=== PATIENT | female | born 1960 | race Caucasian/White ===

== ENCOUNTER 2022-10-05 08:41 | Outpatient (CLI) | payer OTHER, SELFPAY ==
--- NOTE | 2022-10-05 11:00 | NEURO_ITS ---
Impression: # Complains of numbness and shooting pain in lower extremities # Normal nerve conduction study. # Normal F-waves. # Normal needle/EMG exam. # Clinical correlation recommended. Motor Nerve Conduction Lower Extremities Peroneal Nerve Conduction Velocity (m/sec) Terminal Latency (msec) Response Voltage(mV) Popliteal space-Ankle Ankle Extensor Dig Brevis Popliteal space Ankle Right 52 4.6 3 4 Left 49 4.3 3 5 Tibial Nerve Conduction Velocity (m/sec) Terminal Latency (msec) Response Voltage(mV) Popliteal space-Ankle Ankle-Extensor Dig Brevis Popliteal space Ankle Right 48 4.7 4 6 Left 45 4.5 3 5 F-waves Peroneal Nerve (ms) Tibial Nerve (ms) Right 49.8 51.2 Left 50.5 51.4 Sensory Nerve Conduction Lower Extremities Sural Nerve Stimulation Terminal Latency (msec) Ankle Response Voltage (uV) Ankle Response Velocity (m/sec) Right 3.3 3 48 Left 3.2 7 50 Superficial Peroneal Nerve Stimulation Terminal Latency (msec) Ankle Response Voltage (uV) Ankle Response Velocity (m/sec) Right 3.1 19 52 Left 3.2 4 50 RIGHT LATERAL PLANTER=4.1ms LEFT LATERAL PLANTER=4.3 ms Left Right Muscles Examined Fibrillation Fasciculation Scarcity Voltage Duration Left Right Left Right Left Right Left Right Left Right X X Ant Tibialis X X Gastroc X X Fibularis Long X X Flex Dig Long X X Ext Dig Brev Abd Hallucis Quadriceps Paraspinals MTDD
== END 2022-10-05 08:42 | disposition home or self-care (01) ==
PROVIDERS: PCP Internal Medicine; Visit Provider Internal Medicine
DX: G62.89 Other specified polyneuropathies (principal)
CPT/HCPCS: 95886; 95911

== ENCOUNTER 2022-11-02 10:50 | Outpatient (CLI) | payer OTHER, SELFPAY ==
--- NOTE | ~2022-11-02 | CT_ITS ---
Non-contrast CT scan of the Abdomen and Pelvis Clinical indication: Abdominal pain Technique: 5 mm axial scans were obtained through the abdomen and pelvis without intravenous or oral contrast. Dose reduction technique was used on this scan by utilizing automated exposure control and iterative reconstruction technique. The dose-length product (DLP) was 1023.53 mGy-cm. Findings: Images through the lung bases reveal no abnormalities. There is no evidence of renal or ureteral calculi. The kidneys and the ureters are nondilated. The liver, spleen, pancreas, gallbladder, and adrenals appear normal. There is no aortic aneurysm. There is no evidence of bowel obstruction. There is sigmoid diverticulosis. Suggestion of prior herni orrhaphy. Images through the pelvis were performed. There is no evidence of ascites or lymphadenopathy. Urinary bladder unremarkable. Patient is post hysterectomy. No pelvic mass. Impression: No acute abnormality seen. Postoperative changes, as above. Reviewed, dictated and finalized at [facility]. ITAL PLAN ADMINISTRATOR Impression: No acute abnormality seen. Postoperative changes, as above.
[2022-11-02 11:09] LABS: Basophils Absolute Auto 0.03 K/mm3 (0.00-0.10); Basophils Percent Auto 0.5 % (0.0-1.0); Eosinophils Absolute Auto 0.07 K/mm3 (0.02-0.50); Eosinophils Percent Auto 1.1 % (1.0-6.0); Hematocrit 44.9 % (35.0-49.0); Hemoglobin 14.5 g/dL (12.0-15.0); Immature Granulocyte Absolute 0.02 K/mm3 (0.00-0.00); Immature Granulocyte Percent A 0.3 % (0.0-0.0); Lymphocytes Absolute Auto 1.47 K/mm3 (1.10-4.50); Lymphocytes Percent Auto 23.3 % (18.0-42.0); Mean Corpuscular HGB Conc 32.3 g/dL (32.0-36.0); Mean Corpuscular Hemoglobin 28.5 pg (27.0-31.0); Mean Corpuscular Volume 88.2 fL (78.0-102.0); Monocytes Absolute Auto 0.41 K/mm3 (0.10-0.90); Monocytes Percent Auto 6.5 % (2.0-11.0); Neutrophils Absolute Auto 4.3 K/mm3 (1.7-7.2); Neutrophils Percent Auto 68.3 % (50.0-70.0); Platelet Count Result 226 K/mm3 (150-420); Red Blood Count 5.09 M/mm3 (4.20-5.40); Red Cell Distribution Width 13.1 % (11.6-14.4); White Blood Count 6.3 K/mm3 (4.8-10.8)
[2022-11-02 11:21] LABS: Add Urine Microscopic? YES; Appearance Urine Clear (Clear); Bilirubin Urine Negative (Negative); Blood Urine Trace-Intact (Negative); Color Urine Yellow (Yellow); Glucose Urine UA Negative (Negative); Ketones Urine Negative (Negative); Leukocyte Esterase Ur Trace (Negative); Nitrate Urine Negative (Negative); Protein Urine 2+ (Negative); Specific Grav Ur >= 1.030 (1.010-1.020); Urobilinogen Urine 0.2 mg/dL (0.2-1.0)
[2022-11-02 11:48] LABS: Bacteria Urine Trace /hpf; RBC Urine None seen /hpf (0-2); Squamous Epithelial Cell Urine Moderate /hpf (Few); WBC Urine 0-3 /hpf (0-3)
[2022-11-02 11:50] LABS: Alanine Aminotransferase 21 U/L (14-59); Albumin Level 4.1 g/dL (3.4-5.0); Alkaline Phosphatase 96 U/L (46-116); Amylase 55 U/L (25-115); Anion Gap 6 mmol/L (8-16); Aspartate Amino Transferase 12 U/L (15-37); Bilirubin,Total 0.5 mg/dL (0.00-1.00); Blood Urea Nitrogen 13 mg/dL (7-18); Calcium 9.3 mg/dL (8.5-10.1); Carbon Dioxide 30 mmol/L (21-32); Chloride 103 mmol/L (98-108); Estimated Glomerular Filt Rate > 60; Glucose 139 mg/dL (70-99); Lipase 22 U/L (16-77); Osmolality Calculated 290 mOsm/kg (285-295); Potassium 4.1 mmol/L (3.5-5.1); Sodium 139 mmol/L (136-145); Total Protein 8.1 g/dL (6.4-8.2)
[2022-11-02 11:57] LABS: Lactic Acid 1.2 mmol/L (0.4-2.0)
== END 2022-11-02 10:51 | disposition home or self-care (01) ==
PROVIDERS: PCP Internal Medicine; Visit Provider Internal Medicine
DX: R10.9 Unspecified abdominal pain (principal); Z98.890 Other specified postprocedural states
CPT/HCPCS: 36415; 74176; 80053; 81001; 82150; 83605; 83690; 85025; 87086; 87088

== ENCOUNTER 2022-11-13 07:43 | Outpatient (CLI) | payer OTHER, SELFPAY ==
--- NOTE | ~2022-11-13 | NM_ITS ---
EXAMINATION: NM hepatobiliary w pharm DATE: 11/13/2022 14:21 INDICATION: Right upper quadrant abdominal pain. COMPARISON: CT abdomen and pelvis 11/02/2022 TECHNIQUE: 6.28 mCi Tc-99m mebrofenin (Choletec) was administered intravenously. Scintigraphic image s of the abdomen were obtained for one hour. Then, 1.8 mcg sincalide (Kinevac) IV was administered, a nd imaging was continued for 30 minutes. FINDINGS: There is normal clearance of radiotracer from the blood pool. There is homogeneous tracer u ptake by the liver. Activity progresses to the bowel and gallbladder. Gallbladder ejection fraction (GBEF) was 8%. Note that most patients with gallbladder dysfunction have GBEF < 35%, which overlaps w ith the broad normal range of 10-90%. IMPRESSION: 1. Low gallbladder ejection fraction, consistent with gallbladder dysfunction and/or chronic cholecy stitis. Reviewed, dictated and finalized at location A. FEEDER IMPRESSION: 1. Low gallbladder ejection fraction, consistent with gallbladder dysfunction and/or chronic cholecystitis.
== END 2022-11-13 07:44 | disposition home or self-care (01) ==
PROVIDERS: PCP Internal Medicine; Visit Provider Internal Medicine
DX: R10.11 Right upper quadrant pain (principal)
CPT/HCPCS: 78227; A9537; J2805

== ENCOUNTER 2022-12-07 09:37 | Outpatient (CLI) | payer OTHER, SELFPAY ==
--- NOTE | 2022-12-07 09:50 | ECG_ITS ---
Measurements Intervals [place] Rate: 75 P: -7 VA: 128 QRS: 16 QRSD: 89 T: 30 QT: 365 QTc: 408 Interpretive Statements SINUS RHYTHM WITH SINUS ARRHYTHMIA NONSPECIFIC T-WAVE ABNORMALITY ABNORMAL ECG NO PREVIOUS ECG AVAILABLE FOR COMPARISON Electronically Signed On 12-07-2022 10:12:09 VALVE SETTER by César Thornton M.D.
== END 2022-12-07 09:38 | disposition home or self-care (01) ==
PROVIDERS: PCP Internal Medicine; Visit Provider Surgery
DX: Z01.818 Encounter for other preprocedural examination (principal); I10 Essential (primary) hypertension; K82.8 Other specified diseases of gallbladder; R94.31 Abnormal electrocardiogram [ECG] [EKG]; I49.8 Other specified cardiac arrhythmias
CPT/HCPCS: 36415; 86850; 86900; 86901; 93005

== ENCOUNTER 2022-12-13 00:19 | Day surgery (SDC) | payer OTHER, SELFPAY ==
--- NOTE | 2022-12-01 14:52 | PC.NURSE ---
Report to the Outpatient Waiting Room, entrance under the green pavilion located off [facility], at time __1130 on date __12/13/22 . Planned Procedure Time: _1330 . Time changes happen often and if your time is changed the preop area will call you the afternoon before. - You and your visitor will be asked to self-screen and do not enter if you have any COVID symptoms. - Only one visitor is requested with a max of two and NO children visitors are allowed at this time. - The patient visitor may be requested to leave or wait in car when not with patient due to distancing restrictions. - A mask is optional within the hospital at this time. Patients may have clear liquids (water, carbonated beverages, clear teas, apple juice) until 3 hours prior to surgery with a maximum of 20 ounces. - No food from midnight until time of surgery - Infants may have breast milk until 4 hours before surgery, formula 6 hours prior to surgery. - Children will be allowed to drink immediately following surgery. If applicable, please bring a bottle or sippy cup to assist with drinking. Juice, water, soda, and popsicles are readily available. For infants on formula, please bring formula the day of surgery. Pacifiers are allowed. Take the following medications with a SIP of water the morning of surgery: ____NONE DO NOT STOP ANY OF YOUR OTHER PRESCRIPTION MEDICATIONS PRIOR TO SURGERY ?EXCEPT THE FOLLOWING Medications to discontinue per physician NONE Date to take last dose HIBICLENS SHOWER THE MORNING OF SURGERY Please no make-up, nail georgian, hairspray, perfume, deodorant, or body powder the day of surgery. No jewelry (including any body piercings) or valuables the day of surgery, leave them at home. Please take a shower or bath the night before, or the morning of, surgery with an antibacterial soap. Wear comfortable, loose fitting clothing. Children are encouraged to wear pajamas. - Jewelry must be removed prior to entering the operating room. Rings and piercings that are not removed may be cut off. - The hospital will not accept responsibility for valuables. - Please leave all valuables, including medications, at home the day of surgery. If you are going home after surgery, a licensed coach driver must drive you home. - NO public transportation without another adult if you receive anesthesia. - We recommend that an adult stay with you for 24 hours following discharge. - We also recommend that you do not drive, make important decision, drink alcoholic beverages, or take any drugs that were not prescribed by your health care provider for at least 24 hours after your discharge time. For Pediatric surgeries, we recommend two adults accompany the child home. Follow any additional instructions given to you from your surgeon. If you or anyone in your household have experienced Covid symptoms in the past week, please notify your surgeon or the nurse liaison at the phone number below for possible testing. Telephone instructions given to ___PATIENT and asked if any additional questions and then verbalized understanding. Patient advised to call surgeon office or pre surgery nurse liaison [phone] if any additional questions.
[2022-12-01 15:01] VITALS: BMI 33.6
[2022-12-13] VITALS (14 sets, daily range): BP systolic 95–137; BP diastolic 53–81; PULSE 53–85; RESP 12–22; TEMP 36.6; O2SAT 93–100
[2022-12-13] MEDS: ACETAMINOPHEN 500 MG TABLET 1000 MG PO (08:00)
[2022-12-13] MEDS: LACTATED RINGERS 1,000 ML 30 ML IV CONT ×3 (08:20→14:27)
[2022-12-13 08:33] LABS: Glucose Point of Care 130 mg/dl (65-105)
--- NOTE | 2022-12-13 09:02 | WPDANESEPPF ---
Anes - Initial Pre Proc Eval Procedure: Operation Date: 12/13/22 09:30 Proposed Procedures p Robotic Assisted Laparoscopic Cholecystectomy Possible Open - Huy Winters DO Date/Time: 12/13/22 09:02 Surgeon: Huy Winters DO Pre Op Diagnosis: biliary dyskinesia, Epigastric pain Patient Data Age: 62 Gender: F Height: 1.63 m Weight: 89.3 kg Last Vital Signs Temp 36.6 C 12/13/22 08:39 Pulse 79 12/13/22 08:39 Resp 16 12/13/22 08:39 BP 137/81 12/13/22 08:39 Pulse Ox 100 12/13/22 08:39 O2 Del Method Room Air 12/13/22 08:39 Allergies Allergy/AdvReac Type Severity Reaction Status Date / Time iodine Allergy Severe Anaphylactic Verified 12/13/22 07:43 Shock codeine Allergy Unknown Hallucinati Verified 12/13/22 07:43 ng erythromycin base Allergy Unknown Hives Verified 12/13/22 07:43 Shrimp Allergy Severe Anaphylactic Uncoded 12/13/22 07:43 Shock MYRIAM AdvReac Mild REDDNESS Uncoded 12/13/22 07:43 AND SWELLING Home Medications Medication Instructions Recorded Confirmed Type epinephrine 0.3 mg/0.3 mL 0.3 mg IM Q4H PRN Allergic Reaction 11/23/22 12/13/22 History injection, auto-injector (EpiPen) glipizide 2.5 mg tablet, extended 2.5 mg PO DAILY 11/23/22 12/13/22 History release 24 hr hydroxyzine HCl 25 mg tablet 25 mg PO BID PRN Itching 11/23/22 12/13/22 History losartan 25 mg tablet 25 mg PO BID 11/23/22 12/13/22 History lovastatin 20 mg tablet 20 mg PO DAILY 11/23/22 12/13/22 History omeprazole 40 mg capsule,delayed 40 mg PO DAILY 11/23/22 12/13/22 History release Laboratory Tests 12/13/22 08:30 POC Capillary Glucose 130 mg/dl H mg/dl (65-105) Patient hx anesthesia problems: post op nausea/vomiting Family hx anesthesia problems: none Results Review: All pre-operative results and documents have been reviewed as part of the pre-operative evaluation. [facility] Past Medical History Medical History Diverticulosis GERD (gastroesophageal reflux disease) High cholesterol Hypertension Type 2 diabetes mellitus Surgical History Surgical History H/O: hysterectomy 2004 History of bilateral carpal tunnel release History of incisional hernia repair Family History Family History Mother Diabetes mellitus Hypertension Family history of arthritis Other Leukemia Social History Social History Smoking status: Never smoker Alcohol intake: current Living arrangements: with family Spiritual care concerns: No Anes - Eval Final PreProcedure Day of Procedure 12/13/22 09:02 Patient weight: obese Heart: regular rate and rhythm Lungs: clear to auscultation Airway: Mallampati scale class II Neurological: alert and oriented Last oral intake: >/= 8 hours ASA classification: III Emergent: no Anesthetic plan: proceed Anesthesia type and monitoring: general ETT and standard monitoring Results Review: All pre-operative results and documents have been reviewed as part of the pre-operative evaluation. Informed Consent: The patient's anesthetic plan and its attendant risks and benefits were discussed with the patient/family/POA. Questions were solicited and answers provided to the satisfaction of the patient/family/POA.
[2022-12-13] MEDS: KETOROLAC 15 MG/ML VIAL (*BKC) IV PUSH (09:28)
[2022-12-13] MEDS: SCOPOLAMINE 1.5 MG PATCH TRANSDERM (09:28)
--- NOTE | 2022-12-13 09:31 | WPDHPUPDATE1 ---
History and Physical Update Update Date/Time: 12/13/22 09:31 History and Physical has been reviewed, including an updated exam of the patient. There are NO changes in the patient's condition. Risks, benefits, and alternatives have been discussed and questions answered. Patient agrees to proceed with procedure.
[2022-12-13] MEDS: ceFAZolin 2 GM/D5W 50 ML 2 GM/50 ML BAG IVPB (09:56)
[2022-12-13] MEDS: BUPIVACAINE/EPINEPHRINE 0.5% 10 ML VIAL 30 ML INFILTRATE (10:35)
--- NOTE | 2022-12-13 11:14 | W.PM.PROC2 ---
Procedure Note - Detailed Date of Procedure 12/13/22 Pre-op Diagnosis biliary dyskinesia, Epigastric pain Post-op Diagnosis Same Procedure Performed Laparoscopic cholecystectomy, da Rita assisted Surgeon Huy Winters DO Anesthesia General and Local (0.5% bupivacaine) Indications This is a 62-year-old woman who presented with epigastric abdominal pain for the past couple months. She initially had a CT abdomen and pelvis done which was normal, but then a HIDA scan showed a gallbladder ejection fraction of 8%. Discussions were made with the patient about treatment options and decision was made to proceed with robotic assisted laparoscopic cholecystectomy. Findings Robotic assisted laparoscopic cholecystectomy was performed. The gallbladder was slightly dilated but otherwise appeared grossly normal. The cystic duct appeared normal in size. No other significant abnormalities were noted. The gallbladder was removed and sent to the lab for pathology. Description of Procedure Procedure as well as risks, benefits, and alternatives were discussed with the patient. Written consent was obtained and placed in chart prior to procedure. 1.5 mL of indocyanine green was given intravenously in preop. Patient was brought back to surgical suite. She was placed supine on operating table. Time-out was done to confirm patient and procedure. She was then intubated by the anesthesia department. Her abdomen was then prepped and draped in sterile fashion using chlorhexidine prep. 0.5% bupivacaine was infiltrated locally at the site of each port placement. An 8 mm incision was made just superior to the umbilicus and a 5 mm Optiview trocar was then advanced through the abdominal layers under direct visualization. Once inside the abdominal cavity, carbon dioxide insufflation was used to create a pneumoperitoneum. The camera was inserted and the abdomen was inspected. No mediated abnormalities were noted. The patient was placed in 10? reverse Trendelenburg position and rotated 10? to the left. Two 8 mm incisions were made in the right lateral abdomen and 2 8 mm trocars were inserted under direct visualization. A 8 mm incision was made in the left lateral abdomen and an 8 mm trocar was inserted under direct visualization. The 5 mm Optiview trocar was then removed and another 8 mm trocar was inserted in its place. The robotic arms were then brought up to the patient's bedside and secured to each port. The camera and instruments were inserted. I then moved over to the robotic consult to take control of the camera and instruments. The gallbladder was grasped at the fundus and retracted cephalad. The infundibulum of the gallbladder was then grasped and retracted laterally. Hook electrocautery was then used to carefully dissect around the neck of the gallbladder. The cystic duct was identified and a window was created around it using hook electrocautery. The cystic artery was also identified and a window was created behind it using hook electrocautery. Critical view of safety was identified visualizing the cystic duct running directly into the neck of the gallbladder and the cystic artery running directly into the wall the gallbladder. Hemo lock clips were placed on both the cystic duct and cystic artery. Two clips were placed proximally and 1 distally. Hook electrocautery was then used to transect in between the clips. Once safely away from the evin hepatus, hook electrocautery was used to dissect the gallbladder off of the liver bed. Once the gallbladder was completely dissected free it was then placed in an Endo-Catch bag and removed through the supraumbilical port site. The liver bed was carefully inspected. Hemostasis appeared adequate under clips appeared secure. No other intra-abdominal abnormalities were noted. A Orestes cone was then used to approximate the fascia of the supraumbilical port using an 0 Vicryl suture. The remaining instruments and camera were
[2022-12-13 11:28] LABS: Glucose Point of Care 151 mg/dl (65-105)
[2022-12-13] MEDS: ONDANSETRON INJ 4 MG/2 ML VIAL IV PUSH (11:57)
[2022-12-13] MEDS: fentaNYL CITRATE INJ (*CRX) 100 MCG/2 ML VIAL 25 MCG IV PUSH ×6 (12:04→12:47)
[2022-12-13] MEDS: diphenhydrAMINE HCl INJ 50 MG/ML VIAL 25 MG IV PUSH (12:36)
--- NOTE | 2022-12-13 13:41 | SUR.PHASEII ---
Notified Dr. Reynolds regarding patient's continued nausea w/ dry heaves. Order received for 12.5mg of IV Phenergan.
[2022-12-13] MEDS: PROMETHAZINE HCL 25 MG/ML AMPUL 12.5 MG IV PUSH (13:44)
== END 2022-12-13 16:21 | disposition home or self-care (01) ==
PROVIDERS: PCP Internal Medicine; Visit Provider Surgery
PROC: 0FT44ZZ Resection of Gallbladder, Percutaneous Endoscopic Approach (ICD-10-PCS; CPT 47562; principal; 2022-12-13 09:30)
DX: K81.1 Chronic cholecystitis (principal); I10 Essential (primary) hypertension; E11.9 Type 2 diabetes mellitus without complications; E78.00 Pure hypercholesterolemia, unspecified; K21.9 Gastro-esophageal reflux disease without esophagitis; Z79.84 Long term (current) use of oral hypoglycemic drugs; E66.9 Obesity, unspecified; Z68.33 Body mass index [BMI] 33.0-33.9, adult
CPT/HCPCS: 47562; S2900; 82948; 88304; A9270; J0690; J1100; J1170; J1200; J1885; J2250; J2405; J2550; J2704; J2710; J3010; J7120

== ENCOUNTER 2023-05-03 07:54 | Emergency (ER) | payer OTHER, SELFPAY ==
--- NOTE | ~2023-05-03 | CT_ITS ---
EXAMINATION: CT abdomen pelvis wo con DATE: 05/03/2023 08:20 INDICATION: Nausea and vomiting TECHNIQUE: Computed tomography (CT) of the abdomen and pelvis was performed without intravenous contr ast. The dose-length product (DLP) was 1350.10 mGy-cm. Automated exposure control and iterative recon struction technique were employed. COMPARISON: 11/02/2022 FINDINGS: The lung bases are clear. The heart size is normal. Calcified coronary artery atheroscleros is is noted. There are changes of cholecystectomy. The liver, spleen, pancreas, and adrenal glands ar e normal. The right kidney is unremarkable. There is a 1 mm nonobstructing stone of the left kidney. No stones are present in the ureters or bladder. No hydronephrosis or hydroureter. No pathologically enlarged abdominal or pelvic lymph nodes are identified. No free intraperitoneal gas or evidence of b owel obstruction. Colonic diverticulosis is present without evidence of diverticulitis. The appendix is normal. Ventral hernia repair mesh is noted. There is mild lumbar spondylosis. IMPRESSION: 1. No CT correlate for the patient's symptoms. Reviewed, dictated and finalized at location L.
[2023-05-03 07:57] VITALS: BP 127/88; PULSE 115; RESP 18; TEMP 37.2; O2SAT 97
--- NOTE | 2023-05-03 08:01 | ECG_ITS ---
Measurements Intervals [place] Rate: 90 P: 55 [place]: 151 QRS: 65 QRSD: 80 T: 40 QT: 363 QTc: 446 Interpretive Statements SINUS RHYTHM NORMAL ELECTROCARDIOGRAM COMPARED TO ECG 12/07/2022 10:07:13 NO SIGNIFICANT CHANGES Electronically Signed On 05-04-2023 17:32:11 CDT by Aldair Ivey M.D.
[2023-05-03] MEDS: SODIUM CHLORIDE 0.9% IV 1,000 ML 999 ML IV CONT (08:36)
[2023-05-03] MEDS: ONDANSETRON INJ 4 MG/2 ML VIAL IV PUSH (08:36)
[2023-05-03] MEDS: PANTOPRAZOLE SODIUM IV 40 MG VIAL IV PUSH (08:36)
[2023-05-03 08:39] LABS: Appearance Urine Clear (Clear); Bilirubin Urine Negative (Negative); Blood Urine Negative (Negative); Color Urine Light Yellow (Yellow); Glucose Urine UA Negative (Negative); Ketones Urine Trace (Negative); Leukocyte Esterase Ur Negative LEU/UL (Negative); Nitrate Urine Negative (Negative); Protein Urine 2+ (Negative); Specific Grav Ur 1.015 (1.010-1.020); Urobilinogen Urine 0.2 mg/dL (0.2-1.0); pH Urine 8.5 (5.0-8.0)
[2023-05-03 08:51] LABS: Add Urine Microscopic? YES; RBC Urine None seen /hpf (0-2); Squamous Epithelial Cell Urine Few /hpf (Few); WBC Urine None seen /hpf (0-3)
[2023-05-03 08:52] LABS: Bacteria Urine Rare /hpf
[2023-05-03 08:57] LABS: Basophils Absolute Auto 0.03 K/mm3 (0.00-0.10); Basophils Percent Auto 0.3 % (0.0-1.0); Eosinophils Absolute Auto 0.04 K/mm3 (0.02-0.50); Eosinophils Percent Auto 0.4 % (1.0-6.0); Hematocrit 43.1 % (35.0-49.0); Hemoglobin 14.5 g/dL (12.0-15.0); INR 0.9; Immature Granulocyte Absolute 0.04 K/mm3 (0.00-0.00); Immature Granulocyte Percent A 0.4 % (0.0-0.0); Lymphocytes Absolute Auto 0.37 K/mm3 (1.10-4.50); Lymphocytes Percent Auto 3.5 % (18.0-42.0); Mean Corpuscular HGB Conc 33.6 g/dL (32.0-36.0); Mean Corpuscular Hemoglobin 29.5 pg (27.0-31.0); Mean Corpuscular Volume 87.6 fL (78.0-102.0); Mean Platelet Volume 11.4 fl (9.2-11.8); Monocytes Absolute Auto 0.31 K/mm3 (0.10-0.90); Monocytes Percent Auto 2.9 % (2.0-11.0); Neutrophils Absolute Auto 9.8 K/mm3 (1.7-7.2); Neutrophils Percent Auto 92.5 % (50.0-70.0); Partial Thromboplastin Time 23.7 SEC (23.90-30.70); Platelet Count Result 199 K/mm3 (150-420); Red Blood Count 4.92 M/mm3 (4.20-5.40); Red Cell Distribution Width 13.2 % (11.6-14.4); White Blood Count 10.6 K/mm3 (4.8-10.8)
[2023-05-03 09:05] LABS: Lactic Acid Reflex 2.8 mmol/L (0.4-2.0)
[2023-05-03 09:12] LABS: Alanine Aminotransferase 30 U/L (14-59); Albumin Level 3.8 g/dL (3.4-5.0); Alkaline Phosphatase 93 U/L (46-116); Anion Gap 10 mmol/L (8-16); Aspartate Amino Transferase 16 U/L (15-37); Bilirubin,Total 0.6 mg/dL (0.00-1.00); Blood Urea Nitrogen 23 mg/dL (7-18); CRP 1.5 mg/dL (0.0-0.9); Calcium 8.9 mg/dL (8.5-10.1); Carbon Dioxide 27 mmol/L (21-32); Chloride 103 mmol/L (98-108); Estimated Glomerular Filt Rate > 60; Glucose 208 mg/dL (70-99); Osmolality Calculated 299 mOsm/kg (285-295); Sodium 140 mmol/L (136-145); Total Protein 7.4 g/dL (6.4-8.2)
--- NOTE | 2023-05-03 09:13 | ED.NAVMDI ---
HPI - Nausea/Vomiting/Diarrhea General Chief complaint: Nausea/Vomiting/Diarrhea Stated complaint: nausa/vomiting Time Seen by Provider: 05/03/23 07:54 Source: patient and family Mode of arrival: ambulatory Limitations: no limitations History of Present Illness HPI Narrative: this is a 62-year-old female who presents with a 1 day history of nausea and numerous episodes of vomiting with epigastric and abdominal discomfort with no fever chills does have 1 episode of diarrhea with no flank pain no shortness of breath. The patient has history diabetes it is well controlled, no flank pain no chest pain. MD elicited complaint: nausea, vomiting, diarrhea and abdominal pain Onset (ago): day(s) Description of vomiting: watery Associated nausea: Yes Associated abdominal pain: Yes Location of pain: epigastric Related Data Home Medications Medication Instructions Recorded Confirmed epinephrine 0.3 mg/0.3 mL 0.3 mg IM Q4H PRN Allergic Reaction 11/23/22 05/03/23 injection, auto-injector (EpiPen) glipizide 2.5 mg tablet, extended 2.5 mg PO DAILY 11/23/22 05/03/23 release 24 hr hydroxyzine HCl 25 mg tablet 25 mg PO BID PRN Itching 11/23/22 05/03/23 losartan 25 mg tablet 25 mg PO BID 11/23/22 05/03/23 lovastatin 20 mg tablet 20 mg PO DAILY 11/23/22 05/03/23 omeprazole 40 mg capsule,delayed 40 mg PO DAILY 11/23/22 05/03/23 release Allergies Allergy/AdvReac Type Severity Reaction Status Date / Time iodine Allergy Severe Anaphylactic Verified 05/03/23 07:55 Shock codeine Allergy Unknown Hallucinati Verified 05/03/23 07:55 ng erythromycin base Allergy Unknown Hives Verified 05/03/23 07:55 Shrimp Allergy Severe Anaphylactic Uncoded 05/03/23 07:55 Shock MYRIAM AdvReac Mild REDDNESS Uncoded 05/03/23 07:55 AND SWELLING Review of Systems Review of Systems: All systems reviewed & are unremarkable except as noted in HPI and below PMFSH Past Medical History Medical History Diverticulosis GERD (gastroesophageal reflux disease) High cholesterol Hypertension Type 2 diabetes mellitus Surgical History Surgical History H/O: hysterectomy 2004 History of bilateral carpal tunnel release History of incisional hernia repair Hx laparoscopic cholecystectomy robotic lap sushma 12/13/22 Family History Family History Mother Diabetes mellitus Hypertension Family history of arthritis Other Leukemia Social History Social History Smoking status: Never smoker Alcohol intake: current Living arrangements: with family Gender identity (if verbalized by the patient): Female Sexual Orientation (if Verbalized by the Patient): Straight or Heterosexual Spiritual care concerns: No Exam Const: General: healthy appearing Nutritional Appearance: well nourished Orientation/consciousness: patient oriented x3 Limitations: no limitations HENMT: Head: normal to inspection Eyes: Conjunctivae: conjunctivae normal Neck: Neck: normal visual inspection Chest: Chest palpation & inspection: normal inspection of the chest Resp: Effort & Inspection: normal respiratory effort Auscultation: clear to auscultation bilaterally Cardio: Rate: regular rate Rhythm: regular rhythm GI: GI Palp: Yes Soft to palpation and Yes Tenderness to palpation present (GI) Auscultation: normal bowel sounds : General: Yes bladder normal to palpation Skin: General skin exam: normal color Rashes: no rashes Neuro: General: patient oriented x3 and moves all extremities Extrem: General: normal to inspection, no clubbing, cyanosis or edema and no pedal edema Psych: Mental Status: mental status grossly normal Affect: normal affect Attitude: cooperative Course Course Emergency Course: Patient uriarte
[2023-05-03 09:18] LABS: Lipase 20 U/L (16-77)
[2023-05-03 09:37] VITALS: BP 129/82; PULSE 95; RESP 16; TEMP 36.2; O2SAT 97
[2023-05-03 11:39] LABS: Reflex Lactic Acid Yes or No Add Lactic
== END 2023-05-03 09:37 | disposition home or self-care (01) ==
PROVIDERS: Emergency Provider Emergency Medicine; PCP Internal Medicine
DX: K52.9 Noninfective gastroenteritis and colitis, unspecified (principal); E11.9 Type 2 diabetes mellitus without complications; I10 Essential (primary) hypertension
CPT/HCPCS: 36415; 74176; 80053; 81001; 83605; 83690; 84484; 85025; 85610; 85730; 86140; 93005; 96361; 96374; 96375; 99284; C9113; J2405; J7030

== ENCOUNTER 2023-08-24 20:58 | Emergency (ER) | payer OTHER, SELFPAY ==
--- NOTE | ~2023-08-24 | XR_ITS ---
EXAMINATION: XR ankle RT min 3V INDICATION: Right ankle pain, initial encounter TECHNIQUE: Three views of the right ankle are obtained. COMPARISON: 09/27/2014 FINDINGS: There is marked lateral soft tissue swelling of ankle. There is an avulsion fracture at the distal aspect of the lateral malleolus. No additional fracture is identified. No osteochondral lesio n. A plantar calcaneal enthesophyte is noted. IMPRESSION: 1. Acute avulsion of the distal tip of the lateral malleolus with lateral soft tissue swelling of ank le. Reviewed, dictated and finalized at location F. IMPRESSION: 1. Acute avulsion of the distal tip of the lateral malleolus with lateral soft tissue swelling of ankle.
[2023-08-24 21:22] VITALS: BP 136/86; PULSE 70; RESP 16; TEMP 36.6; O2SAT 100
--- NOTE | 2023-08-24 22:26 | ED.LOWEXIN ---
HPI - Extremity Injury (Lower) General Chief Complaint: Extremity Injury, Lower Stated Complaint: ankle injury Time Seen by Provider: 08/24/23 21:41 Source: patient Mode of arrival: ambulatory Limitations: no limitations History of Present Illness HPI Narrative: Patient is a 62-year-old female who presents to the ED with report of right ankle pain. 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 She rolled her right ankle. She complains of pain to her right lateral ankle. She was able to walk back to her house, but has since been unable to bear weight on her right foot. She did sustain abrasions to bilateral knees, but denies pain associated with this. Denies numbness or tingling. No HI or LOC. She has not taken anything for pain. Related Data Home Medications Medication Instructions Recorded Confirmed epinephrine 0.3 mg/0.3 mL 0.3 mg IM Q4H PRN Allergic Reaction 11/23/22 05/03/23 injection, auto-injector (EpiPen) glipizide 2.5 mg tablet, extended 2.5 mg PO DAILY 11/23/22 05/03/23 release 24 hr hydroxyzine HCl 25 mg tablet 25 mg PO BID PRN Itching 11/23/22 05/03/23 losartan 25 mg tablet 25 mg PO BID 11/23/22 05/03/23 lovastatin 20 mg tablet 20 mg PO DAILY 11/23/22 05/03/23 omeprazole 40 mg capsule,delayed 40 mg PO DAILY 11/23/22 05/03/23 release Allergies Allergy/AdvReac Type Severity Reaction Status Date / Time iodine Allergy Severe Anaphylactic Verified 08/24/23 21:26 Shock codeine Allergy Unknown Hallucinati Verified 08/24/23 21:26 ng erythromycin base Allergy Unknown Hives Verified 08/24/23 21:26 Shrimp Allergy Severe Anaphylactic Uncoded 08/24/23 21:26 Shock MYRIAM AdvReac Mild REDDNESS Uncoded 08/24/23 21:26 AND SWELLING Review of Systems Review of Systems: CONSTITUTIONAL: Denies fever, chills, or sweats. SKIN: See HPI. MUSCULOSKELETAL: See HPI. NEUROLOGIC: Denies tingling, numbness, or weakness. All systems reviewed & are unremarkable except as noted in HPI and below PMFSH Past Medical History Medical History Diverticulosis GERD (gastroesophageal reflux disease) High cholesterol Hypertension Type 2 diabetes mellitus Surgical History Surgical History H/O: hysterectomy 2004 History of bilateral carpal tunnel release History of incisional hernia repair Hx laparoscopic cholecystectomy robotic lap sushma 12/13/22 Family History Family History Mother Diabetes mellitus Hypertension Family history of arthritis Other Leukemia Social History Social History Smoking status: Never smoker Alcohol intake: current Lack of Transportation: No Lack of Food: Never True Current Housing: I Have Housing Concerned About Future Housing: No Difficulty Paying Gas/Electric Bills: No Difficulty Paying for Meds: No Currently Unemployed: No Education: High School Diploma/GED Difficulty w/ Childcare or Family Care: No Living arrangements: with family Gender identity (if verbalized by the patient): Female Sexual Orientation (if Verbalized by the Patient): Straight or Heterosexual Spiritual care concerns: No Exam Narrative: GENERAL: Mildly uncomfortable appearing, well-nourished, non-toxic, in no acute distress. HEAD: Normocephalic, atraumatic. NECK: Supple. No adenopathy, no masses. RESPIRATORY: Airway patent, respirations nonlabored. Clear to auscultation bilaterally, no rales, rhonchi, wheezing. CARDIOVASCULAR: Regular rate and rhythm without murmurs, rubs, or gallops. Pedal pulses 2+ and equal bilaterally. MUSCULOSKELETAL: Moves all extremities. Strength/ROM intact without gross deformities. Moderate swelling noted
[2023-08-24] MEDS: KETOROLAC (*BKC) 60 MG/2 ML VIAL IM (22:34)
[2023-08-24] MEDS: traMADol HCL (*CRX) 25 MG TABLET PO (22:34)
== END 2023-08-24 22:54 | disposition home or self-care (01) ==
LOC: ANHED 22:33
PROVIDERS: Emergency Provider Physician Assistant; PCP Internal Medicine
DX: S82.64XA Nondisplaced fracture of lateral malleolus of right fibula, initial encounter for closed fracture (principal); I10 Essential (primary) hypertension; E11.9 Type 2 diabetes mellitus without complications; X50.0XXA Overexertion from strenuous movement or load, initial encounter; Y93.K1 Activity, walking an animal
CPT/HCPCS: 29515; 73610; 96372; 99284; A9270; J1885